=== PATIENT | female | born 1985 | race American Indian/Alaskan Native ===

== ENCOUNTER 2018-04-29 07:31 | Inpatient (IN) | payer MEDICARE, OTHER ==
[2018-04-29 07:33] VITALS: BMI 27.3
[2018-04-29] MEDS ORDERED: Albuterol-Ipratrop 3 mg / 0.5 (3 ml) UD INH STA (08:42)
[2018-04-29] MEDS ORDERED: Sodium Chloride 0.9% 1,000 ML IV ONE (08:43)
[2018-04-29] MEDS ORDERED: Sodium Chloride 0.9% 1,000 ML IV SCH ×2 (08:45→11:00)
[2018-04-29 09:02] LABS: BASO % 0.9 % (0.0-2.0); EOS % 0.6 % (0.0-4.0); HEMOGLOBIN 12.7 g/dL (11.0-16.0); LYMPH # 1.4 K/uL (1.0-4.3); LYMPH % 30.5 % (20.0-40.0); MEAN CELL VOLUME 101.5 fL (81.0-99.0); MEAN CORPUSCULAR HEMOGLOBIN 34.3 pg (27.0-31.0); MEAN CORPUSCULAR HGB CONC 33.8 g/dL (33.0-37.0); MEAN PLATELET VOLUME 8.4 fL (7.2-11.7); MONO # 0.4 K/uL (0.0-0.8); MONO % 7.8 % (0.0-10.0); NEUT # 2.7 K/uL (1.8-7.0); NEUT % 60.2 % (50.0-75.0); RBC 3.72 Mil/uL (3.80-5.20); RED CELL DISTRIBUTION WIDTH 12.7 % (11.5-14.5); WHITE BLOOD COUNT 4.5 K/uL (4.8-10.8)
[2018-04-29 09:04] LABS: VENOUS BLOOD GAS PCO2 56 mmHg (40-60); VENOUS BLOOD GAS PO2 28 mm/Hg (30-55)
[2018-04-29 09:15] LABS: SQUAMOUS EPITHIAL 3 /hpf (0-5); URINE BILIRUBIN NEGATIVE (NEGATIVE); URINE BLOOD 3+ (NEGATIVE); URINE CLARITY Hazy (Clear); URINE COLOR Red (YELLOW); URINE GLUCOSE (UA) NORMAL (Normal); URINE LEUKOCYTE ESTERASE NEG Leu/uL (Negative); URINE PROTEIN NEGATIVE (NEGATIVE)
[2018-04-29 09:19] LABS: HCG,QUALITATIVE URINE NEGATIVE (NEGATIVE)
[2018-04-29] MEDS ORDERED: Sodium Chloride 0.9% 1,000 ML ONE (09:30)
--- NOTE | 2018-04-29 09:31 | C.PDOC ---
History Of Present Illness 33 year old female patient presents to the ER sent from [facility] for a PEG replacement. Patient is non-verbal and is unable to give information. pt with rhonchorous cough, tachycardic and warm to touch. Time Seen by Provider: 04/29/18 07:47 Chief Complaint (Nursing): GI Problem Past Medical History Reviewed: Historical Data, Nursing Documentation, Vital Signs Vital Signs: Last Vital Signs Temp 99.4 F 04/29/18 13:10 Pulse 110 H 04/29/18 13:10 Resp 20 04/29/18 13:10 BP 120/80 04/29/18 13:10 Pulse Ox 96 04/29/18 13:10 - Medical History PMH: Asthma, HTN, Pneumonia, Seizures - [facility] Procedures CENTRAL VENOUS CATHETER PLACEMENT WITH GUIDANCE (08/30/12) NEBULIZER THERAPY (07/15/13) PERCUTANEOUS [ENDOSCOPIC] GASTROSTOMY [PEG] (11/11/98) Family History: States: No Known Family Hx - Social History Hx Tobacco Use: No Hx Alcohol Use: No Hx Substance Use: No Review Of Systems Review Of Systems: ROS cannot be obtained secondary to pt's inabilty to answer questions. Physical Exam - Physical Exam Appears: No Acute Distress, Chronically Ill Skin: Normal Color, Other (hot to touch) Head: Atraumatic, Normacephalic Ear(s): Bilateral: Normal Oral Mucosa: Dry Lips: Other (chapped) Neck: Supple Chest: No Deformity Cardiovascular: Other (tachycardic) Respiratory: No Normal Breath Sounds, Rhonchi (bilateral), No Stridor Gastrointestinal/Abdominal: Bowel Sounds, Tenderness (mild), Distention (mild), No Guarding, No Rebound Pelvic: Other (found blood on diaper) Extremity: No Pedal Edema, Other (contracted LE) Pulses: Left Dorsalis Pedis: Normal, Right Dorsalis Pedis: Normal Neurological/Psych: Other (alert, non-verbal) ED Course And Treatment - Laboratory Results Result Diagrams: 04/29/18 08:58 04/29/18 08:58 O2 Sat by Pulse Oximetry: 97 (RA) Pulse Ox Interpretation: Normal - Other Rad CXR X-Ray: Read By Radiologist Interpretation: Accession No. : [id number]. Patient Name / ID : JOSE THIBODEAUX / [id number]. Exam Date : 04/29/2018 09:04:07 ( Approved ). Study Comment : Sex / Age : F / 33Y. Creator : Natalee Deluna MD. Dictator : Natalee Deluna MD. Top Precipitator Operator : Stuffed Casing Tier : Natalee Deluna MD. Approver2 : Report Date : 04/29/2018 10:11:36. My Comment : . HISTORY: cough. COMPARISON: None available. TECHNIQUE: Chest, one view. FINDINGS: Examination limited by habitus. LUNGS: Mild interstitial prominence is noted on the left, possibly due to patient obliquity. Edema or infection cannot be excluded. Please note that chest x-ray has limited sensitivity for the detection of pulmonary masses. PLEURA: No significant pleural effusion identified. No definite pneumothorax . CARDIOVASCULAR: Heart size appears within normal limits. OSSEOUS STRUCTURES: Partially imaged Magana rods. VISUALIZED UPPER ABDOMEN: Unremarkable. OTHER FINDINGS: None. IMPRESSION: Mild interstitial prominence on the left, likely exaggerated by patient obliquity. Infection or edema cannot be excluded in the proper clinical setting. - CT Scan/US chest Other Rad Studies (CT/US): Read By Radiologist, Radiology Report Reviewed CT/US Interpretation: Accession No. : [id number]. Patient Name / ID : JOSE THIBODEAUX / [id number]. Exam Date : 04/29/2018 12:12:34 ( Approved ). Study Comment : Sex / Age : F / 33Y. Creator : Marina Calabrese. Dictator : Natalee Deluna MD. Top Precipitator Operator : Stuffed Casing Tier : Natalee Deluna MD. Approver2 : Report Date : 04/29/2018 12:25:11. My Comment : . Date of service: 04/29/18. CT chest without IV contrast. Indication: Rule out pneumonia. Technique: Contiguous axial images were obtained through the chest without intravenous contrast enhancement. Sagittal and coronal reconstructions were generated and reviewed. This CT exam was performed using 1 or more of the following dose reduction techniques: Automated exposure control, adjustment of the MAA and/or kV according to patient size, and/or use of iterative reconstruction technique. . Radiation dose (DLP): 449.84 MGy-cm. Comparison : Chest x-ray performed 04/29/18. Findings: Visualized portions of the inferior thyroid gland appear unremarkable. The mediastinal and hilar vascular structures appear within normal limits. The heart appears within normal limits of size. No focal consolidation. No pleural effusion. No pneumothorax. No suspicious pulmonary nodules measuring greater than 5 mm. Limited visualization of the noncontrast upper abdomen: Partially imaged cholelithiasis. Tubing is partially imaged on the system support analyst view and reformatted sequences in the right upper quadrant ; correlate clinically. . Streak artifact from Magana rods limit evaluation. Impression: No focal consolidation. Partially imaged cholelithiasis. Progress Note: Dr. Jones was notified of patients condition. Dr. Jones require ED workup. Pre-Sepsis lab ordered. - Physician Consult Information Physician Contacted: Chandler Jones Outcome Of Conversation: required ED workup Medical Decision Making Medical Decision Making: Impression: PEG replacement Plans: -- Venous blood gas -- blood work -- CXR -- albuterol -- Maxipime -- IV fluids -- Vancomycin -- blood cx [id number] Bedolla; will admit for pna, give vanco and cefipime since coming from me. Dr Jones aware pt to be admitted and not to go to endo suite for procedure today. Disposition Discussed With : Kartik Bedolla Doctor Will See Patient In The: Hospital - Disposition Disposition: HOSPITALIZED Disposition Time: 10:50 Condition: STABLE - Clinical Impression Clinical Impression: Pneumonia - PA / GENERAL OPERATIONS MANAGER / Resident Statement / has reviewed & agrees with the documentation as recorded. - Scribe Statement The provider has reviewed the documentation as recorded by the Tray Kirkland Do All medical record entries made by the Tray were at my direction and personally dictated by me. I have reviewed the chart and agree that the record accurately reflects my personal performance of the history, physical exam, medical decision making, and the department course for this patient. I have also personally directed, reviewed, and agree with the discharge instructions and disposition.
[2018-04-29 09:34] LABS: ALB/GLOB RATIO 1.2 (1.0-2.1); ALBUMIN 4.2 g/dL (3.5-5.0); ALT/SGPT 41 U/L (9-52); AST/SGOT 44 U/L (14-36); BLOOD UREA NITROGEN 16 mg/dL (7-17); CALCIUM 9.1 mg/dl (8.6-10.4); GFR NON-AFRICAN AMERICAN > 60
[2018-04-29] MEDS ORDERED: Cefepime 1 GM in Sodium Chloride 0.9% 50 ML IVPB ONE (09:45)
[2018-04-29] MEDS ORDERED: Albuterol-Ipratrop 3 mg / 0.5 (3 ml) UD ONE (09:54)
--- NOTE | 2018-04-29 10:14 | RAD ---
HISTORY: cough COMPARISON: None available. TECHNIQUE: Chest, one view. FINDINGS: Examination limited by habitus. LUNGS: Mild interstitial prominence is noted on the left, possibly due to patient obliquity. Edema or infection cannot be excluded. Please note that chest x-ray has limited sensitivity for the detection of pulmonary masses. PLEURA: No significant pleural effusion identified. No definite pneumothorax . CARDIOVASCULAR: Heart size appears within normal limits. OSSEOUS STRUCTURES: Partially imaged Magana rods. VISUALIZED UPPER ABDOMEN: Unremarkable. OTHER FINDINGS: None. IMPRESSION: Mild interstitial prominence on the left, likely exaggerated by patient obliquity. Infection or edema cannot be excluded in the proper clinical setting.
[2018-04-29] MEDS: Sodium Chloride 0.9% 1,000 ML IV SCH (11:53)
--- NOTE | 2018-04-29 11:54 | CP.PCM.HP ---
<Kaylin Kan - Last Filed: 04/29/18 16:21> History of Present Illness - History of Present Illness History of Present Illness: cc "PEG tube replacement" Patient is a 33 year old female sent in from care home for replacement of PEG tube. While in ED, it was observed that patient had labored breathing and cough. Patient has recent hx of PNA, . Patient has altered mental status and is at baseline non-verbal. Information obtained through care home records. PMHx: HTN, Epilepsy/seizure disorder, Cerebral palsy PSHx: PEG Allergies:codeine SocHx:unknown FamHx: unknown Present on Admission - Present on Admission Any Indicators Present on Admission: No Review of Systems - Review of Systems Systems not reviewed;Unavailable: Altered Mental Status Past Patient History - Tetanus Immunizations Tetanus Immunization: Unknown - Past Social History Smoking Status: Never Smoked - CARDIAC Hx Hypertension: Yes - PULMONARY Hx Asthma: Yes Hx Pneumonia: Yes - NEUROLOGICAL Hx Seizures: Yes - HEENT Hx Difficulty Chewing: Yes - HEMATOLOGICAL/ONCOLOGICAL Hx Blood Transfusions: (not known) - MUSCULOSKELETAL/RHEUMATOLOGICAL Hx Musculoskeletal Disorders: Yes Other/Comment: Quadriplegia - GASTROINTESTINAL Hx Gastrointestinal Disorders: Yes Other/Comment: PEG tube - PSYCHIATRIC Hx Substance Use: No - SURGICAL HISTORY Hx Surgeries: Yes Hx Musculoskeletal Surgery: Yes (reza to left hip and back) Other/Comment: Peg tube - ANESTHESIA Hx Anesthesia Reactions: No Hx Malignant Hyperthermia: No Meds Allergies/Adverse Reactions: Allergies Allergy/AdvReac Type Severity Reaction Status Date / Time codeine Allergy Verified 04/29/18 08:36 Physical Exam - Constitutional Appears: Non-toxic, Chronically Ill - Head Exam Head Exam: ATRAUMATIC, NORMAL INSPECTION, NORMOCEPHALIC - Eye Exam Eye Exam: Nystagmus (lateral) - ENT Exam ENT Exam: Mucous Membranes Dry - Neck Exam Neck exam: Negative for: Lymphadenopathy, Thyromegaly - Respiratory Exam Respiratory Exam: Rhonchi. absent: NORMAL BREATHING PATTERN (tachypneic) - Cardiovascular Exam Cardiovascular Exam: Tachycardia, REGULAR RHYTHM, +S1, +S2 - GI/Abdominal Exam GI & Abdominal Exam: Normal Bowel Sounds, Soft Additional comments: White tube noted inserted as gastric tube. Dressing, clean, dry and intact - Exam Speculum exam: Vaginal Bleeding (patient actively menstruating) - Extremities Exam Extremities exam: Positive for: normal capillary refill. Negative for: full ROM , normal inspection (contracted), pedal edema - Neurological Exam Neurological exam: Altered - Skin Skin Exam: Diaphoretic, Intact, Normal Color, Warm Results - Vital Signs Recent Vital Signs: Last Vital Signs Temp 100 F H 04/29/18 08:15 Pulse 127 H 04/29/18 10:10 Resp 16 04/29/18 10:10 BP 124/85 04/29/18 10:10 Pulse Ox 97 04/29/18 10:51 - Labs Result Diagrams: 04/29/18 08:58 04/29/18 08:58 Labs: Laboratory Results - last 24 hr 04/29/18 04/29/18 04/29/18 08:58 08:58 09:00 WBC 4.5 L RBC 3.72 L Hgb 12.7 Hct 37.7 MCV 101.5 H MCH 34.3 H MCHC 33.8 RDW 12.7 Plt Count 185 MPV 8.4 Neut % (Auto) 60.2 Lymph % (Auto) 30.5 Bland % (Auto) 7.8 Eos % (Auto) 0.6 Baso % (Auto) 0.9 Neut # (Auto) 2.7 Lymph # (Auto) 1.4 Bland # (Auto) 0.4 Eos # (Auto) 0.0 Baso # (Auto) 0.0 pO2 28 L VBG pH 7.40 VBG pCO2 56 VBG HCO3 30.0 VBG Total CO2 36.4 H VBG O2 Sat (Calc) 52.7 VBG Base Excess 8.0 H VBG Potassium 3.5 L Glucose 100 Lactate 1.1 FiO2 21.0 Sodium 138 137.0 Potassium 3.9 Chloride 100 102.0 Carbon Dioxide 30 Anion Gap 12 BUN 16 Creatinine 0.5 L Est GFR ( Amer) > 60 Est GFR (Non-Af Amer) > 60 Random Glucose 99 Calcium 9.1 Magnesium 2.1 Total Bilirubin 0.7 AST 44 H ALT 41 Alkaline Phosphatase 146 H Total Protein 7.7 Albumin 4.2 Globulin 3.5 Albumin/Globulin Ratio 1.2 Venous Blood Potassium 3.5 L Urine Color Urine Clarity Urine pH Ur Specific [place] Urine Protein Urine Glucose (UA) Urine Ketones Urine Blood Urine Nitrate Urine Bilirubin Urine Urobilinogen Ur Leukocyte Esterase Urine WBC (Auto) Urine RBC (Auto) Ur Squamous Epith Cells Urine HCG, Qual 04/29/18 09:06 WBC RBC Hgb Hct MCV MCH MCHC RDW Plt Count MPV Neut % (Auto) Lymph % (Auto) Bland % (Auto) Eos % (Auto) Baso % (Auto) Neut # (Auto) Lymph # (Auto) Bland # (Auto) Eos # (Auto) Baso # (Auto) pO2 VBG pH VBG pCO2 VBG HCO3 VBG Total CO2 VBG O2 Sat (Calc) VBG Base Excess VBG Potassium Glucose Lactate FiO2 Sodium Potassium Chloride Carbon Dioxide Anion Gap BUN Creatinine Est GFR ( Amer) Est GFR (Non-Af Amer) Random Glucose Calcium Magnesium Total Bilirubin AST ALT Alkaline Phosphatase Total Protein Albumin Globulin Albumin/Globulin Ratio Venous Blood Potassium Urine Color Red Urine Clarity Hazy Urine pH 6.0 Ur Specific [place] 1.027 Urine Protein Negative Urine Glucose (UA) Normal Urine Ketones Negative Urine Blood 3+ H Urine Nitrate Negative Urine Bilirubin Negative Urine Urobilinogen 4.0 H Ur Leukocyte Esterase Neg Urine WBC (Auto) 1 Urine RBC (Auto) 228 H Ur Squamous Epith Cells 3 Urine HCG, Qual Negative Assessment & Plan - Assessment and Plan (Free Text) Assessment: 33 year old female admitted with suspected pneumonia Suspected PNA -Temp 100 on admission. HR 127 -Chest CT(04/29) no consolidation, cholelithiasis -procalcitonin <.05 -NS @100, watch for fluid overload PEG replacement -f/u Robert recs. -home meds and feeds -accuchecks q4 -GI consult, Dr. Jones Epilepsy -keppra 500mg q12 -home meds held pending Robert PEG eval Cerebral Palsy -home meds held pending Robert PEG eval <Kartik Bedolla H - Last Filed: 04/29/18 17:48> Results - Vital Signs Recent Vital Signs: Last Vital Signs Temp 98.5 F 04/29/18 16:00 Pulse 103 H 04/29/18 16:00 Resp 20 04/29/18 16:00 BP 115/64 04/29/18 16:00 Pulse Ox 97 04/29/18 16:00 - Labs Result Diagrams: 04/29/18 08:58 04/29/18 08:58 Labs: Laboratory Results - last 24 hr 04/29/18 04/29/18 04/29/18 08:58 08:58 09:00 WBC 4.5 L RBC 3.72 L Hgb 12.7 Hct 37.7 MCV 101.5 H MCH 34.3 H MCHC 33.8 RDW 12.7 Plt Count 185 MPV 8.4 Neut % (Auto) 60.2 Lymph % (Auto) 30.5 Bland % (Auto) 7.8 Eos % (Auto) 0.6 Baso % (Auto) 0.9 Neut # (Auto) 2.7 Lymph # (Auto) 1.4 Bland # (Auto) 0.4 Eos # (Auto) 0.0 Baso # (Auto) 0.0 pO2 28 L VBG pH 7.40 VBG pCO2 56 VBG HCO3 30.0 VBG Total CO2 36.4 H VBG O2 Sat (Calc) 52.7 VBG Base Excess 8.0 H VBG Potassium 3.5 L Glucose 100 Lactate 1.1 FiO2 21.0 Sodium 138 137.0 Potassium 3.9 Chloride 100 102.0 Carbon Dioxide 30 Anion Gap 12 BUN 16 Creatinine 0.5 L Est GFR ( Amer) > 60 Est GFR (Non-Af Amer) > 60 POC Glucose (mg/dL) Random Glucose 99 Calcium 9.1 Magnesium 2.1 Total Bilirubin 0.7 AST 44 H ALT 41 Alkaline Phosphatase 146 H Total Protein 7.7 Albumin 4.2 Globulin 3.5 Albumin/Globulin Ratio 1.2 Procalcitonin Venous Blood Potassium 3.5 L Urine Color Urine Clarity Urine pH Ur Specific [place] Urine Protein Urine Glucose (UA) Urine Ketones Urine Blood Urine Nitrate Urine Bilirubin Urine Urobilinogen Ur Leukocyte Esterase Urine WBC (Auto) Urine RBC (Auto) Ur Squamous Epith Cells Urine HCG, Qual 04/29/18 04/29/18 04/29/18 09:06 11:34 15:21 WBC RBC Hgb Hct MCV MCH MCHC RDW Plt Count MPV Neut % (Auto) Lymph % (Auto) Bland % (Auto) Eos % (Auto) Baso % (Auto) Neut # (Auto) Lymph # (Auto) Bland # (Auto) Eos # (Auto) Baso # (Auto) pO2 VBG pH VBG pCO2 VBG HCO3 VBG Total CO2 VBG O2 Sat (Calc) VBG Base Excess VBG Potassium Glucose Lactate FiO2 Sodium Potassium Chloride Carbon Dioxide Anion Gap BUN Creatinine Est GFR ( Amer) Est GFR (Non-Af Amer) POC Glucose (mg/dL) 97 Random Glucose Calcium Magnesium Total Bilirubin AST ALT Alkaline Phosphatase Total Protein Albumin Globulin Albumin/Globulin Ratio Procalcitonin < 0.05 L Venous Blood Potassium Urine Color Red Urine Clarity Hazy Urine pH 6.0 Ur Specific [place] 1.027 Urine Protein Negative Urine Glucose (UA) Normal Urine Ketones Negative Urine Blood 3+ H Urine Nitrate Negative Urine Bilirubin Negative Urine Urobilinogen 4.0 H Ur Leukocyte Esterase Neg Urine WBC (Auto) 1 Urine RBC (Auto) 228 H Ur Squamous Epith Cells 3 Urine HCG, Qual Negative Attending/Attestation - Attestation I have personally seen and examined this patient.: Yes I have fully participated in the care of the patient.: Yes I have reviewed all pertinent clinical information: Yes Notes (Text): 04/29/18 17:46 Medical attending: Patient was seen and examined by me with the infertility medical assistant The patient is non-verbal and does not follow any commands. Patient is awake and moving her eyes. There are contractures of the upper and lower extremity it appears from history of being bed bound - the reason why is not immediately clear to us at this moment. The patient intially came to have exchange of the G-tube. A white cathter was in the present stoma to keep it open. Because of the CXRAY findings as well as elevated temperature will start IV abx for the time being as well as IVF. Change some medications to IV as well, in particular the keppra will now be via IV Kartik Bedolla
--- NOTE | 2018-04-29 12:57 | CT ---
Date of service: 04/29/18 CT chest without IV contrast Indication: Rule out pneumonia Technique: Contiguous axial images were obtained through the chest without intravenous contrast enhancement. Sagittal and coronal reconstructions were generated and reviewed. This CT exam was performed using 1 or more of the following dose reduction techniques: Automated exposure control, adjustment of the MAA and/or kV according to patient size, and/or use of iterative reconstruction technique. Radiation dose (DLP): 449.84 MGy-cm. Comparison: Chest x-ray performed 04/29/18 Findings: Visualized portions of the inferior thyroid gland appear unremarkable. The mediastinal and hilar vascular structures appear within normal limits. The heart appears within normal limits of size. No focal consolidation. No pleural effusion. No pneumothorax. No suspicious pulmonary nodules measuring greater than 5 mm. Limited visualization of the noncontrast upper abdomen: Partially imaged cholelithiasis. Tubing is partially imaged on the ceramic capacitor processor view and reformatted sequences in the right upper quadrant ; correlate clinically. Streak artifact from Magana rods limit evaluation. Impression: No focal consolidation. Partially imaged cholelithiasis.
[2018-04-29] MEDS ORDERED: Vancomycin 750mg/NS 150 ml 150 ML IVPB SCH (15:30)
[2018-04-29] MEDS ORDERED: Budesonide 0.5 mg/2 ml Inhal Susp UD INH SCH (20:00)
[2018-04-29] MEDS: levETIRAcetam 500 MG in Sodium Chloride 0.9% 100 ML IVPB SCH (21:34)
[2018-04-29] MEDS: Vancomycin 750mg/NS 150 ml 150 ML IVPB SCH (21:36)
[2018-04-29] MEDS ORDERED: levETIRAcetam 100 mg/ml (5ml) Oral Syringe GT SCH (22:00)
[2018-04-30] MEDS: Sodium Chloride 0.9% 1,000 ML IV SCH ×2 (01:43→05:50)
[2018-04-30 07:05] LABS: BASO % 0.6 % (0.0-2.0); EOS % 0.3 % (0.0-4.0); HEMOGLOBIN 12.7 g/dL (11.0-16.0); LYMPH # 1.4 K/uL (1.0-4.3); LYMPH % 25.7 % (20.0-40.0); MEAN CELL VOLUME 101.2 fL (81.0-99.0); MEAN CORPUSCULAR HEMOGLOBIN 34.8 pg (27.0-31.0); MEAN CORPUSCULAR HGB CONC 34.3 g/dL (33.0-37.0); MEAN PLATELET VOLUME 8.8 fL (7.2-11.7); MONO # 0.5 K/uL (0.0-0.8); MONO % 8.6 % (0.0-10.0); NEUT # 3.4 K/uL (1.8-7.0); NEUT % 64.8 % (50.0-75.0); RBC 3.66 Mil/uL (3.80-5.20); RED CELL DISTRIBUTION WIDTH 12.8 % (11.5-14.5); WHITE BLOOD COUNT 5.3 K/uL (4.8-10.8)
[2018-04-30 07:51] LABS: ALB/GLOB RATIO 1.2 (1.0-2.1); ALBUMIN 4.2 g/dL (3.5-5.0); ALT/SGPT 37 U/L (9-52); AST/SGOT 30 U/L (14-36); BLOOD UREA NITROGEN 8 mg/dL (7-17); CALCIUM 9.3 mg/dl (8.6-10.4); GFR NON-AFRICAN AMERICAN > 60
--- NOTE | 2018-04-30 09:29 | CP.PCM.PN ---
<Kaylin Kan - Last Filed: 04/30/18 16:30> Subjective - Date & Time of Evaluation Date of Evaluation: 04/30/18 Time of Evaluation: 09:27 - Subjective Subjective: Patient examined at bedside. No acute events overnight. ROS unobtainable as pt is non-verbal. Objective - Vital Signs/Intake and Output Vital Signs (last 24 hours): Temp Pulse Resp BP Pulse Ox 98.5 F 117 H 20 162/86 H 95 04/30/18 07:06 04/30/18 07:06 04/30/18 07:06 04/30/18 07:06 04/30/18 07:06 Intake and Output: 04/30/18 04/30/18 06:59 18:59 Intake Total 500 560 Balance 500 560 - Medications Medications: Current Medications Budesonide (Pulmicort Respules) 0.5 mg INH RQ12 CARIN Docusate Sodium (Colace) 50 mg GT DAILY CARIN Sodium Chloride (Sodium Chloride 0.9%) 1,000 mls @ 70 mls/hr IV .[id number] CARIN Last Admin: 04/30/18 05:50 Dose: 70 mls/hr Levetiracetam 500 mg/ Sodium (Chloride) 105 mls @ 420 mls/hr IVPB Q12H CARIN Last Admin: 04/29/18 21:34 Dose: 420 mls/hr Vancomycin HCl (Vancocin 750mg/Ns 150 Ml) 150 mls @ 166.6 mls/hr IVPB Q12H CARIN PRN Reason: Protocol Stop: 05/04/18 21:46 Last Admin: 04/29/18 21:36 Dose: 166.6 mls/hr Cefepime HCl 1 gm/ Dextrose 50 mls @ 100 mls/hr IVPB Q8H CARIN PRN Reason: Protocol Last Admin: 04/30/18 09:23 Dose: 100 mls/hr - Labs Labs: 04/30/18 06:55 04/30/18 06:55 - Constitutional Appears: Non-toxic, No Acute Distress - Head Exam Head Exam: ATRAUMATIC, NORMAL INSPECTION, NORMOCEPHALIC - Eye Exam Eye Exam: Nystagmus (lateral) - ENT Exam ENT Exam: Mucous Membranes Moist, Normal Exam - Neck Exam Neck Exam: absent: Lymphadenopathy - Respiratory Exam Respiratory Exam: Clear to Ausculation Bilateral, NORMAL BREATHING PATTERN. absent: Rales, Wheezes - Cardiovascular Exam Cardiovascular Exam: Tachycardia, REGULAR RHYTHM, +S1, +S2 - GI/Abdominal Exam GI & Abdominal Exam: Soft, Normal Bowel Sounds. absent: Distended, Tenderness Additional comments: white still in place. Dressing clean, dry and intact - Exam Speculum exam: Vaginal Bleeding - Extremities Exam Extremities Exam: Normal Capillary Refill. absent: Normal Inspection ( contracted, muscle wasting) - Neurological Exam Neurological Exam: Awake - Skin Skin Exam: Dry, Intact, Normal Color, Warm Assessment and Plan - Assessment and Plan (Free Text) Assessment: 33 year old female admitted with suspected pneumonia Suspected PNA -Temp 100 on admission. HR 127 -Chest CT(04/29) no consolidation, cholelithiasis -procalcitonin <.05 -D5 .5NS@70, watch for fluid overload PEG replacement -plan for change 05/01 per Robert - hold home meds and feeds -accuchecks q4 -GI consult, Dr. Jones Epilepsy -keppra 500mg IV q12 -home GT meds held pending Robert PEG eval Cerebral Palsy -home GT meds held pending Robert PEG eval <Kartik Bedolla - Last Filed: 04/30/18 17:59> Objective - Vital Signs/Intake and Output Vital Signs (last 24 hours): Temp Pulse Resp BP Pulse Ox 98.1 F 101 H 20 130/82 96 04/30/18 16:00 04/30/18 16:00 04/30/18 16:00 04/30/18 16:00 04/30/18 16:00 Intake and Output: 04/30/18 04/30/18 06:59 18:59 Intake Total 500 560 Balance 500 560 - Medications Medications: Current Medications Budesonide (Pulmicort Respules) 0.5 mg INH RQ12 CARIN Docusate Sodium (Colace) 50 mg GT DAILY [facility] Last Admin: 04/30/18 10:10 Dose: Not Given Levetiracetam 500 mg/ Sodium (Chloride) 105 mls @ 420 mls/hr IVPB Q12H CARIN Last Admin: 04/30/18 10:09 Dose: 420 mls/hr Vancomycin HCl (Vancocin 750mg/Ns 150 Ml) 150 mls @ 166.6 mls/hr IVPB Q12H CARIN PRN Reason: Protocol Stop: 05/04/18 21:46 Last Admin: 04/30/18 10:46 Dose: 166.6 mls/hr Cefepime HCl 1 gm/ Dextrose 50 mls @ 100 mls/hr IVPB Q8H CARIN PRN Reason: Protocol Last Admin: 04/30/18 16:57 Dose: 100 mls/hr Dextrose/Sodium Chloride (Dextrose 5%/0.45% Ns 1000 Ml) 1,000 mls @ 70 mls/hr IV .[id number] [facility] Last Admin: 04/30/18 16:22 Dose: 70 mls/hr Pneumococcal Polyvalent Vaccine (Pneumovax 23 Vaccine) 0.5 ml IM .ONCE ONE Stop: 05/02/18 10:01 - Labs Labs: 04/30/18 06:55 04/30/18 06:55 Attending/Attestation - Attestation I have personally seen and examined this patient.: Yes I have fully participated in the care of the patient.: Yes I have reviewed all pertinent clinical information, including history, physical exam and plan: Yes Notes (Text): 04/30/18 17:57 Medical attending: Patient was seen and examined by me, reviewed the above note by the medical administrative specialist, and agree with the above note. I spoke with GI, the patient is pending the placement of the G-tube tomorrow. Currently she has a White catheter in the stoma to keep that site open. After placement of the PEG/G-tube we will probably be sending the patient back to the residential Thank you very much, Kartik Bedolla
[2018-04-30] MEDS: levETIRAcetam 500 MG in Sodium Chloride 0.9% 100 ML IVPB SCH ×2 (10:09→21:15)
[2018-04-30] MEDS: Vancomycin 750mg/NS 150 ml 150 ML IVPB SCH ×2 (10:46→21:36)
[2018-04-30] MEDS ORDERED: Dextrose 50% SYRINGE Inj (50 ml) ONE (16:21)
[2018-04-30] MEDS: Dextrose 5%/0.45% NS 1,000 ML IV SCH (16:22)
--- NOTE | 2018-04-30 18:32 | PN ---
Copied To: Chandler Jolly MD Attending MD: Chandler Jolly MD DATE: 04/30/2018 LOCATION: 351, bed A. SUBJECTIVE: A 33-year-old female seen initially for GI consultation on 04/29/2018 for potential PEG tube change, was scheduled today as the patient was found to have septicemia by definition. Dorsey catheter apparently was inserted to replace the feeding tube. Due to the patient's initial clinical presentation and the IV intake, it was decided to reschedule the patient for PEG change at a.m. The entire chart is reviewed including but not limited to the most recent lab and radiology study results, current and the previous medication list, current and the previous medical events, and today's lab showed normal CBC as well as low creatinine. Rest of lab results still pending. Radiology study results reviewed. PHYSICAL EXAMINATION: GENERAL: A 33-year-old female, unable to give any accurate history. VITAL SIGNS: Had low grade fever before with heart rate of 114, respiratory rate 20 to 22, blood pressure 156/84. HEENT: Showed pale, dry oral mucous membrane. Nonicteric sclerae. LUNGS: Few scattered mild crepitation. Decreased air entry at bases. HEART: Positive S1 and S2 with increased rate. ABDOMEN: Soft. Bowel sounds are present and Dorsey catheter replacing. PEG tube is in place as reported with evidence of mild anterior abdominal wall cellulitis. EXTREMITIES: upper extremities associated with involuntary movement. No clubbing or cyanosis. NEUROLOGICAL: No reported new neurological deficits, sensory or motor. IMPRESSION: 1. Malnutrition. 2. Anterior abdominal wall cellulitis. 3. Known history of seizure disorder, pneumonia, bronchial asthma with hypertension. SUGGESTIONS: 1. Continue current management. 2. Reschedule PEG insertion at a.m. Further recommendation to follow. Chandler Jolly MD
--- NOTE | 2018-04-30 23:45 | CARD ---
APPROVED REPORT Date of service: 04/29/2018 EKG Measurement Heart [id number] <Conclusion> Sinus tachycardia Septal infarct, age undetermined Abnormal ECG
[2018-05-01] MEDS: Dextrose 5%/0.45% NS 1,000 ML IV SCH ×2 (05:22→14:00)
[2018-05-01 08:18] LABS: BASO % 0.7 % (0.0-2.0); EOS % 0.1 % (0.0-4.0); HEMOGLOBIN 13.6 g/dL (11.0-16.0); LYMPH # 1.5 K/uL (1.0-4.3); LYMPH % 29.6 % (20.0-40.0); MEAN CELL VOLUME 100.9 fL (81.0-99.0); MEAN CORPUSCULAR HEMOGLOBIN 34.5 pg (27.0-31.0); MEAN CORPUSCULAR HGB CONC 34.2 g/dL (33.0-37.0); MEAN PLATELET VOLUME 9.3 fL (7.2-11.7); MONO # 0.5 K/uL (0.0-0.8); NEUT # 3.1 K/uL (1.8-7.0); NEUT % 59.6 % (50.0-75.0); NRBC % 0.1 % (0.0-2.0); RBC 3.93 Mil/uL (3.80-5.20); RED CELL DISTRIBUTION WIDTH 12.6 % (11.5-14.5); WHITE BLOOD COUNT 5.2 K/uL (4.8-10.8)
[2018-05-01 08:33] LABS: ALB/GLOB RATIO 1.3 (1.0-2.1); ALBUMIN 4.5 g/dL (3.5-5.0); ALT/SGPT 42 U/L (9-52); AST/SGOT 36 U/L (14-36); BLOOD UREA NITROGEN 5 mg/dL (7-17); CALCIUM 9.5 mg/dl (8.6-10.4); GFR NON-AFRICAN AMERICAN > 60
[2018-05-01] MEDS: Vancomycin 750mg/NS 150 ml 150 ML IVPB SCH (08:59)
[2018-05-01] MEDS: levETIRAcetam 500 MG in Sodium Chloride 0.9% 100 ML IVPB SCH ×2 (09:59→12:16)
[2018-05-01] MEDS ORDERED: Midazolam 2 MG/2 ML VIAL ONE (10:30)
[2018-05-01] MEDS ORDERED: Bacitracin 500 Units/gm Oint Foilpak UD ONE (10:41)
--- NOTE | 2018-05-01 10:47 | CP.PCM.PN ---
Subjective - Date & Time of Evaluation Date of Evaluation: 05/01/18 Time of Evaluation: 07:00 - Subjective Subjective: Patient examined at bedside today. Per nursing, pt had witnessed seizure-like tonic clonic activity 04/30. Activity ceased, no meds given. Ativan 2mg IV q6 PRN added. Patient looks less responsive than usual, drooling on herself and failing to make eye contact. ROS unobtainable as pt is non-verbal. Objective - Vital Signs/Intake and Output Vital Signs (last 24 hours): Temp Pulse Resp BP Pulse Ox 97.7 F 102 H 20 139/86 100 05/01/18 07:58 05/01/18 07:58 05/01/18 07:58 05/01/18 07:58 05/01/18 07:58 Intake and Output: 05/01/18 05/01/18 06:59 18:59 Intake Total 1280 Balance 1280 - Medications Medications: Current Medications Budesonide (Pulmicort Respules) 0.5 mg INH RQ12 CARIN Docusate Sodium (Colace) 50 mg GT DAILY [facility] Last Admin: 05/01/18 09:59 Dose: Not Given Levetiracetam 500 mg/ Sodium (Chloride) 105 mls @ 420 mls/hr IVPB Q12H CARIN Last Admin: 05/01/18 09:59 Dose: Not Given Vancomycin HCl (Vancocin 750mg/Ns 150 Ml) 150 mls @ 166.6 mls/hr IVPB Q12H CARIN PRN Reason: Protocol Stop: 05/04/18 21:46 Last Admin: 05/01/18 08:59 Dose: 166.6 mls/hr Cefepime HCl 1 gm/ Dextrose 50 mls @ 100 mls/hr IVPB Q8H CARIN PRN Reason: Protocol Last Admin: 05/01/18 08:56 Dose: 100 mls/hr Dextrose/Sodium Chloride (Dextrose 5%/0.45% Ns 1000 Ml) 1,000 mls @ 70 mls/hr IV .[id number] [facility] Last Admin: 05/01/18 05:22 Dose: Not Given Lorazepam (Ativan) 2 mg IVP Q6H PRN PRN Reason: Seizure activity Pneumococcal Polyvalent Vaccine (Pneumovax 23 Vaccine) 0.5 ml IM .ONCE ONE Stop: 05/02/18 10:01 - Labs Labs: 05/01/18 08:03 05/01/18 08:03 - Constitutional Appears: Non-toxic, No Acute Distress - Head Exam Head Exam: ATRAUMATIC, NORMAL INSPECTION, NORMOCEPHALIC - ENT Exam ENT Exam: Mucous Membranes Moist, Normal Exam - Neck Exam Neck Exam: Normal Inspection. absent: Lymphadenopathy - Respiratory Exam Respiratory Exam: Clear to Ausculation Bilateral, NORMAL BREATHING PATTERN. absent: Rales, Wheezes - Cardiovascular Exam Cardiovascular Exam: Tachycardia, REGULAR RHYTHM, +S1, +S2. absent: Murmur - GI/Abdominal Exam GI & Abdominal Exam: Soft, Normal Bowel Sounds. absent: Distended Additional comments: white still in place. Dressing clean, dry, intact - Extremities Exam Extremities Exam: Normal Capillary Refill. absent: Joint Swelling, Normal Inspection (contracted, muscle wasting), Pedal Edema - Neurological Exam Neurological Exam: Awake - Skin Skin Exam: Dry, Intact, Normal Color, Warm Assessment and Plan - Assessment and Plan (Free Text) Assessment: 33 year old female admitted with suspected pneumonia Suspected PNA -Chest CT(04/29) no consolidation, cholelithiasis -procalcitonin <.05 -D5 1/2NS@70, watch for fluid overload PEG replacement -plan for change 05/01 per Robert -hold home meds and feeds -accuchecks q4 -D5 1/2NS @70 for nutrition -GI consult, Dr. Jones Epilepsy -seizure per nursing 04/30 -Ativan 2mg IV PRN -keppra 500mg IV q12 -home GT meds held pending Robert PEG insertion Cerebral Palsy -home GT meds held pending Robert PEG insertion Dispo: d/c s/p PEG
[2018-05-01 11:11] VITALS: O2SAT 98
--- NOTE | 2018-05-01 12:34 | CON ---
Copied To: Chandler Jolly MD Attending MD: Chandler Jolly MD DATE: 04/29/[address] Jolly to Dr. Kartik Bedolla. I was called for GI consultation by the admitting MD as well as the ER staff. The patient is seen and fully examined on 04/29/2018, as requested by the admitting medical team. The entire chart is reviewed including but not limited to the most recent lab and radiology study results, current and the previous medication list, current and the previous medical events, allergy to medication list, as well as all the available current and the previous medical records. Case discussed with the staff at length. This is a 33-year-old female who was admitted to the hospital through the emergency room from a detention due to malfunction of the PEG tube. It has to be mentioned that the patient is nonverbal and unable to give accurate information or past medical history and all the information obtained from medical record, medical staff, nursing staff, as well as detention records. The entire chart is reviewed including but not limited to the most recent lab and radiology study results, current and the previous medication list, current and the previous medical events. Case discussed with the admitting team at length. Past medical history including but not limited to, 1. Hypertension. 2. Bronchial asthma. 3. Anoxic encephalopathy. 4. Seizure disorder. 5. Recurrent episodes of pneumonia. 6. Dysphagia, malnutrition with status post PEG insertion. FAMILY HISTORY: Unknown. SOCIAL HISTORY: The patient is a resident of a detention and no known history of recent cigarette smoking or alcohol intake. CURRENT MEDICATIONS: Post admission medication lists were reviewed. ALLERGIES TO MEDICATIONS: UNCLEAR. After being admitted to the hospital, the patient was found to have normal CBC, but low creatinine. Chest x-ray showed mild interstitial prominence. CAT scan of the chest was performed through the emergency room. Official reports, results seen. PHYSICAL EXAMINATION: GENERAL: A 33-year-old female, nonverbal with persistent involuntary upper extremities movement. VITAL SIGNS: The patient has a low grade fever of 99.4, pulse of 106, respiratory rate 20 to 22 with blood pressure 118/76. HEENT: Showed dry, oral mucous membrane. Nonicteric sclerae. LYMPH NODES: No lymphadenopathy. LUNGS: Few scattered crepitation with decreased air entry at bases. HEART: Positive S1 and S2 with increased rate. ABDOMEN: Soft. The previously inserted PEG tube with Dorsey catheter in place with evidence of mild anterior abdominal wall cellulitis. Bowel sounds are present. No mass or organomegaly. No rebound tenderness or guarding. EXTREMITIES: With involuntary movement. No cyanosis or clubbing. NEUROLOGIC: No reported other significant neurological deficit. The patient is nonverbal. The rest of the physical examination as above. IMPRESSION: 1. Malfunction of percutaneous endoscopic gastrostomy tube. 2. Dysphagia, malnutrition. 3. Multiple past medical history as above. 4. Low grade fever to rule out pneumonia versus fever secondary to anterior abdominal wall cellulitis. SUGGESTIONS: 1. Agree with your plan. 2. IV antibiotics. 3. PEG replacement after receiving consent from the guardian. 4. Further recommendation to follow and the proton pump inhibitors through the IV to be given. Thank you for letting me participate in your patient's case management. Chandler Jolly MD
[2018-05-01 16:12] VITALS: RESP 20; TEMP 99.6
--- NOTE | 2018-05-01 16:54 | CP.PCM.DIS ---
<Kaylin Kan - Last Filed: 05/01/18 16:54> Provider - Provider Date of Admission: 04/29/18 10:50 Attending physician: Kartik Bedolla DO Time Spent in preparation of Discharge (in minutes): 29 Diagnosis - Discharge Diagnosis (1) Pneumonia Status: Acute Hospital Course - Lab Results Lab Results: Micro Results 04/29/18 08:50 Blood Blood Culture - Preliminary NO GROWTH AFTER 24 HOURS 04/29/18 09:30 Blood Blood Culture - Preliminary NO GROWTH AFTER 24 HOURS 04/29/18 09:06 Urine Urine Culture - Final No Growth (<1,000 CFU/ML) Most Recent Lab Values WBC 5.2 K/uL (4.8-10.8) 05/01/18 08:03 RBC 3.93 Mil/uL (3.80-5.20) 05/01/18 08:03 Hgb 13.6 g/dL (11.0-16.0) 05/01/18 08:03 Hct 39.7 % (34.0-47.0) 05/01/18 08:03 MCV 100.9 fL (81.0-99.0) H 05/01/18 08:03 MCH 34.5 pg (27.0-31.0) H 05/01/18 08:03 MCHC 34.2 g/dL (33.0-37.0) 05/01/18 08:03 RDW 12.6 % (11.5-14.5) 05/01/18 08:03 Plt Count 186 K/uL (130-400) 05/01/18 08:03 MPV 9.3 fL (7.2-11.7) 05/01/18 08:03 Neut % (Auto) 59.6 % (50.0-75.0) 05/01/18 08:03 Lymph % (Auto) 29.6 % (20.0-40.0) 05/01/18 08:03 Luce % (Auto) 10.0 % (0.0-10.0) 05/01/18 08:03 Eos % (Auto) 0.1 % (0.0-4.0) 05/01/18 08:03 Baso % (Auto) 0.7 % (0.0-2.0) 05/01/18 08:03 Neut # (Auto) 3.1 K/uL (1.8-7.0) 05/01/18 08:03 Lymph # (Auto) 1.5 K/uL (1.0-4.3) 05/01/18 08:03 Luce # (Auto) 0.5 K/uL (0.0-0.8) 05/01/18 08:03 Eos # (Auto) 0.0 K/uL (0.0-0.7) 05/01/18 08:03 Baso # (Auto) 0.0 K/uL (0.0-0.2) 05/01/18 08:03 pO2 28 mm/Hg (30-55) L 04/29/18 09:00 VBG pH 7.40 (7.32-7.43) 04/29/18 09:00 VBG pCO2 56 mmHg (40-60) 04/29/18 09:00 VBG HCO3 30.0 mmol/L 04/29/18 09:00 VBG Total CO2 36.4 mmol/L (22-28) H 04/29/18 09:00 VBG O2 Sat (Calc) 52.7 % (40-65) 04/29/18 09:00 VBG Base Excess 8.0 mmol/L (0.0-2.0) H 04/29/18 09:00 VBG Potassium 3.5 mmol/L (3.6-5.2) L 04/29/18 09:00 Sodium 137.0 mmol/l (132-148) 04/29/18 09:00 Chloride 102.0 mmol/L (98-107) 04/29/18 09:00 Glucose 100 mg/dl (65-105) 04/29/18 09:00 Lactate 1.1 mmol/L (0.7-2.1) 04/29/18 09:00 FiO2 21.0 % 04/29/18 09:00 Sodium 142 mmol/L (132-148) 05/01/18 08:03 Potassium 3.3 mmol/L (3.6-5.2) L 05/01/18 08:03 Chloride 102 mmol/L (98-107) 05/01/18 08:03 Carbon Dioxide 26 mmol/L (22-30) 05/01/18 08:03 Anion Gap 17 (10-20) 05/01/18 08:03 BUN 5 mg/dL (7-17) L 05/01/18 08:03 Creatinine 0.4 mg/dL (0.7-1.2) L 05/01/18 08:03 Est GFR ( Amer) > 60 05/01/18 08:03 Est GFR (Non-Af Amer) > 60 05/01/18 08:03 POC Glucose (mg/dL) 85 mg/dL (65-110) 05/01/18 16:02 Random Glucose 102 mg/dL (65-105) 05/01/18 08:03 Calcium 9.5 mg/dl (8.6-10.4) 05/01/18 08:03 Phosphorus 3.3 mg/dL (2.5-4.5) 05/01/18 08:03 Magnesium 1.7 mg/dL (1.6-2.3) 05/01/18 08:03 Total Bilirubin 1.0 mg/dL (0.2-1.3) 05/01/18 08:03 AST 36 U/L (14-36) 05/01/18 08:03 ALT 42 U/L (9-52) 05/01/18 08:03 Alkaline Phosphatase 107 U/L (38-126) 05/01/18 08:03 Total Protein 8.0 g/dL (6.3-8.3) 05/01/18 08:03 Albumin 4.5 g/dL (3.5-5.0) 05/01/18 08:03 Globulin 3.5 gm/dL (2.2-3.9) 05/01/18 08:03 Albumin/Globulin Ratio 1.3 (1.0-2.1) 05/01/18 08:03 Procalcitonin < 0.05 NG/ML (0.19-0.49) L 04/29/18 11:34 Beta HCG, Quant < 2.39 mIU/ML 05/01/18 08:03 Venous Blood Potassium 3.5 mmol/L (3.6-5.2) L 04/29/18 09:00 Urine Color Red (YELLOW) 04/29/18 09:06 Urine Clarity Hazy (Clear) 04/29/18 09:06 Urine pH 6.0 (5.0-8.0) 04/29/18 09:06 Ur Specific [place] 1.027 (1.003-1.030) 04/29/18 09:06 Urine Protein Negative mg/dL (NEGATIVE) 04/29/18 09:06 Urine Glucose (UA) Normal mg/dL (Normal) 04/29/18 09:06 Urine Ketones Negative mg/dL (NEGATIVE) 04/29/18 09:06 Urine Blood 3+ (NEGATIVE) H 04/29/18 09:06 Urine Nitrate Negative (NEGATIVE) 04/29/18 09:06 Urine Bilirubin Negative (NEGATIVE) 04/29/18 09:06 Urine Urobilinogen 4.0 mg/dL (0.2-1.0) H 04/29/18 09:06 Ur Leukocyte Esterase Neg Reuben/uL (Negative) 04/29/18 09:06 Urine WBC (Auto) 1 /hpf (0-5) 04/29/18 09:06 Urine RBC (Auto) 228 /hpf (0-3) H 04/29/18 09:06 Ur Squamous Epith Cells 3 /hpf (0-5) 04/29/18 09:06 Urine HCG, Qual Negative (NEGATIVE) 04/29/18 09:06 - Hospital Course Hospital Course: Patient was evaluated and treated at [facility] from 04/29-05/01. While in the ED, labs were drawn, EKG, chest x-ray and chest CT were performed to evaluate the patient. no acute findings discovered. IV antibiotics were started , and patient was placed on IVF. Patient received a PEG tube placement with Dr. Jones with no complications. Blood and urine cultures negative. Patient stable to be discharged back to custodial. Patient advised to return to ED with any worsening of symptoms HPI on admission: " cc "PEG tube replacement" Patient is a 33 year old female sent in from custodial for replacement of PEG tube. While in ED, it was observed that patient had labored breathing and cough. Patient has recent hx of PNA, . Patient has altered mental status and is at baseline non-verbal. Information obtained through custodial records." Discharge Exam - Head Exam Head Exam: ATRAUMATIC, NORMAL INSPECTION, NORMOCEPHALIC - ENT Exam ENT Exam: Mucous Membranes Moist, Normal Exam - Neck Exam Neck exam: Lymphadenopathy, Normal Inspection - Respiratory Exam Respiratory Exam: Clear to PA & Lateral, NORMAL BREATHING PATTERN, UNREMARKABLE - Cardiovascular Exam Cardiovascular Exam: REGULAR RHYTHM, +S1, +S2 - GI/Abdominal Exam GI & Abdominal Exam: Normal Bowel Sounds, Unremarkable - Extremities Exam Extremities exam: normal capillary refill, normal inspection, pedal pulses present - Skin Skin Exam: Dry, Intact, Normal Color, Warm Discharge Plan - Follow Up Plan Condition: STABLE Disposition: REHAB FACILITY/REHAB UNIT Instructions: Community-Acquired Pneumonia, Adult (DC) Additional Instructions: Patient is stable for discharge back to rehab. Patient is advised to follow up w/ her PMD within 1 week of discharge. Patient is advised to continue taking medication as prescribed. Patient is status post PEG placement with Dr. Jones. Patient advised to follow up with Dr. Jones as recommended. Patient advised to return to the ED with any worsening of symptoms. Referrals: Chandler Jones [Staff Provider] - Niurka Gates MD [Staff Provider] - <Kartik Bedolla - Last Filed: 05/01/18 18:43> Provider - Provider Date of Admission: 04/29/18 10:50 Attending physician: Kartik Bedolla DO Hospital Course - Lab Results Lab Results: Micro Results 04/29/18 08:50 Blood Blood Culture - Preliminary NO GROWTH AFTER 24 HOURS 04/29/18 09:30 Blood Blood Culture - Preliminary NO GROWTH AFTER 24 HOURS 04/29/18 09:06 Urine Urine Culture - Final No Growth (<1,000 CFU/ML) Most Recent Lab Values WBC 5.2 K/uL (4.8-10.8) 05/01/18 08:03 RBC 3.93 Mil/uL (3.80-5.20) 05/01/18 08:03 Hgb 13.6 g/dL (11.0-16.0) 05/01/18 08:03 Hct 39.7 % (34.0-47.0) 05/01/18 08:03 MCV 100.9 fL (81.0-99.0) H 05/01/18 08:03 MCH 34.5 pg (27.0-31.0) H 05/01/18 08:03 MCHC 34.2 g/dL (33.0-37.0) 05/01/18 08:03 RDW 12.6 % (11.5-14.5) 05/01/18 08:03 Plt Count 186 K/uL (130-400) 05/01/18 08:03 MPV 9.3 fL (7.2-11.7) 05/01/18 08:03 Neut % (Auto) 59.6 % (50.0-75.0) 05/01/18 08:03 Lymph % (Auto) 29.6 % (20.0-40.0) 05/01/18 08:03 Luce % (Auto) 10.0 % (0.0-10.0) 05/01/18 08:03 Eos % (Auto) 0.1 % (0.0-4.0) 05/01/18 08:03 Baso % (Auto) 0.7 % (0.0-2.0) 05/01/18 08:03 Neut # (Auto) 3.1 K/uL (1.8-7.0) 05/01/18 08:03 Lymph # (Auto) 1.5 K/uL (1.0-4.3) 05/01/18 08:03 Luce # (Auto) 0.5 K/uL (0.0-0.8) 05/01/18 08:03 Eos # (Auto) 0.0 K/uL (0.0-0.7) 05/01/18 08:03 Baso # (Auto) 0.0 K/uL (0.0-0.2) 05/01/18 08:03 pO2 28 mm/Hg (30-55) L 04/29/18 09:00 VBG pH 7.40 (7.32-7.43) 04/29/18 09:00 VBG pCO2 56 mmHg (40-60) 04/29/18 09:00 VBG HCO3 30.0 mmol/L 04/29/18 09:00 VBG Total CO2 36.4 mmol/L (22-28) H 04/29/18 09:00 VBG O2 Sat (Calc) 52.7 % (40-65) 04/29/18 09:00 VBG Base Excess 8.0 mmol/L (0.0-2.0) H 04/29/18 09:00 VBG Potassium 3.5 mmol/L (3.6-5.2) L 04/29/18 09:00 Sodium 137.0 mmol/l (132-148) 04/29/18 09:00 Chloride 102.0 mmol/L (98-107) 04/29/18 09:00 Glucose 100 mg/dl (65-105) 04/29/18 09:00 Lactate 1.1 mmol/L (0.7-2.1) 04/29/18 09:00 FiO2 21.0 % 04/29/18 09:00 Sodium 142 mmol/L (132-148) 05/01/18 08:03 Potassium 3.3 mmol/L (3.6-5.2) L 05/01/18 08:03 Chloride 102 mmol/L (98-107) 05/01/18 08:03 Carbon Dioxide 26 mmol/L (22-30) 05/01/18 08:03 Anion Gap 17 (10-20) 05/01/18 08:03 BUN 5 mg/dL (7-17) L 05/01/18 08:03 Creatinine 0.4 mg/dL (0.7-1.2) L 05/01/18 08:03 Est GFR ( Amer) > 60 05/01/18 08:03 Est GFR (Non-Af Amer) > 60 05/01/18 08:03 POC Glucose (mg/dL) 85 mg/dL (65-110) 05/01/18 16:02 Random Glucose 102 mg/dL (65-105) 05/01/18 08:03 Calcium 9.5 mg/dl (8.6-10.4) 05/01/18 08:03 Phosphorus 3.3 mg/dL (2.5-4.5) 05/01/18 08:03 Magnesium 1.7 mg/dL (1.6-2.3) 05/01/18 08:03 Total Bilirubin 1.0 mg/dL (0.2-1.3) 05/01/18 08:03 AST 36 U/L (14-36) 05/01/18 08:03 ALT 42 U/L (9-52) 05/01/18 08:03 Alkaline Phosphatase 107 U/L (38-126) 05/01/18 08:03 Total Protein 8.0 g/dL (6.3-8.3) 05/01/18 08:03 Albumin 4.5 g/dL (3.5-5.0) 05/01/18 08:03 Globulin 3.5 gm/dL (2.2-3.9) 05/01/18 08:03 Albumin/Globulin Ratio 1.3 (1.0-2.1) 05/01/18 08:03 Procalcitonin < 0.05 NG/ML (0.19-0.49) L 04/29/18 11:34 Beta HCG, Quant < 2.39 mIU/ML 05/01/18 08:03 Venous Blood Potassium 3.5 mmol/L (3.6-5.2) L 04/29/18 09:00 Urine Color Red (YELLOW) 04/29/18 09:06 Urine Clarity Hazy (Clear) 04/29/18 09:06 Urine pH 6.0 (5.0-8.0) 04/29/18 09:06 Ur Specific [place] 1.027 (1.003-1.030) 04/29/18 09:06 Urine Protein Negative mg/dL (NEGATIVE) 04/29/18 09:06 Urine Glucose (UA) Normal mg/dL (Normal) 04/29/18 09:06 Urine Ketones Negative mg/dL (NEGATIVE) 04/29/18 09:06 Urine Blood 3+ (NEGATIVE) H 04/29/18 09:06 Urine Nitrate Negative (NEGATIVE) 04/29/18 09:06 Urine Bilirubin Negative (NEGATIVE) 04/29/18 09:06 Urine Urobilinogen 4.0 mg/dL (0.2-1.0) H 04/29/18 09:06 Ur Leukocyte Esterase Neg Reuben/uL (Negative) 04/29/18 09:06 Urine WBC (Auto) 1 /hpf (0-5) 04/29/18 09:06 Urine RBC (Auto) 228 /hpf (0-3) H 04/29/18 09:06 Ur Squamous Epith Cells 3 /hpf (0-5) 04/29/18 09:06 Urine HCG, Qual Negative (NEGATIVE) 04/29/18 09:06 Attending/Attestation - Attestation I have personally seen and examined this patient.: Yes I have fully participated in the care of the patient.: Yes I have reviewed all pertinent clinical information, including history, physical exam and plan: Yes Notes (Text): 05/01/18 18:43 Medical attending: Patient was seen and examined by me. I saw the patient together with the medical affairs specialist and I agree with the above note by the resident. Patient successfully underwent replacement of the pancreas/G-tube earlier this morning. We'll be sending the patient back to the custodial today. She could resume all her previous medications as before Thank you very much, Kartik Bedolla
[2018-05-01] MEDS ORDERED: Pneumococcal 23-Valent Vaccine IM ONE (17:45)
[2018-05-01 17:49] VITALS: BP 132/68; PULSE 119
== END 2018-05-01 21:11 | DRG 194 ==
LOC: C.ER 07:31 → C.9E 10:50 → C.3T 11:35
PROVIDERS: ADMIT Hospitalist; ATTEND Hospitalist
PROC: 0DC68ZZ Extirpation of Matter from Stomach, Via Natural or Artificial Opening Endoscopic (ICD-10-PCS; 2018-05-01)
PROC: 0DH68UZ Insertion of Feeding Device into Stomach, Via Natural or Artificial Opening Endoscopic (ICD-10-PCS; principal; 2018-05-01 10:25)
DX: J18.9 Pneumonia, unspecified organism (principal); Z43.1 Encounter for attention to gastrostomy; E46 Unspecified protein-calorie malnutrition; G93.1 Anoxic brain damage, not elsewhere classified; L03.311 Cellulitis of abdominal wall; G40.909 Epilepsy, unspecified, not intractable, without status epilepticus; G80.9 Cerebral palsy, unspecified; I10 Essential (primary) hypertension; K21.0 Gastro-esophageal reflux disease with esophagitis; J45.909 Unspecified asthma, uncomplicated; K80.20 Calculus of gallbladder without cholecystitis without obstruction; R13.10 Dysphagia, unspecified; Z87.01 Personal history of pneumonia (recurrent)